=== PATIENT | female | born 1950 | race Caucasian/White ===

== ENCOUNTER 2017-09-15 13:33 | Emergency (ER) | payer SELFPAY ==
[~2017-09-15] VITALS: Ht 188 cm; Wt 70.3 kg
[~2017-09-15 13:33] MED LIST: ASCO500T12 PO; ASPI-496 PO; CALC-141 PO; CANA100T PO; CHOL5000 PO; FLUO40CA9 PO; INSU100I13 INJ; LISI40TA PO; METF10002 PO; MULT-658 PO; ROSU40TA PO
[2017-09-15 13:34] VITALS: BP 125/87
== END 2017-09-15 13:51 | disposition left against medical advice (07) ==
LOC: ED 13:45
DX: F41.9 Anxiety disorder, unspecified (principal); Z53.21 Procedure and treatment not carried out due to patient leaving prior to being seen by health care provider